=== PATIENT | female | born 1965 | race Caucasian/White ===

== ENCOUNTER 2018-03-29 17:54 | Emergency (ER) | payer MEDICAID ==
[2018-03-29] MEDS ORDERED: IOPAMIDOL-300 100 ML VIAL IVP ONE ×2 (17:55→19:38)
[2018-03-29] MEDS ORDERED: HYDROmorphone 2 MG/ML VIAL IVP STA (18:11)
[2018-03-29] MEDS ORDERED: ONDANSETRON 4 MG/2 ML VIAL IVP STA (18:11)
[2018-03-29] MEDS ORDERED: DEXAMETHASONE 10 MG/ML VIAL IVP STA (18:11)
[2018-03-29] MEDS ORDERED: SODIUM CHLORIDE 0.9% 1,000 ML IV ONE (18:11)
[2018-03-29] MEDS ORDERED: AMPICILLIN/SULBACTAM 3 GM in SODIUM CHLORIDE 0.9% MINIBAG 100 ML IV STA (18:11)
--- NOTE | 2018-03-29 18:14 | ED Physician Documentation ---
PD HPI HEENT - Stated complaint Stated Complaint: LF SIDE FACIAL/JAW SWELLING/PX - Chief complaint Chief Complaint: Heent - History obtained from History obtained from: Patient, Family - History of Present Illness Timing - onset: Other (She had a sore throat about a week ago, it went away, but over the last few days has developed progressive left-sided pain from the ear down to the jaw with swelling of the left side of the neck and fevers. She has been vomiting as well.) Review of Systems Ten Systems: 10 systems reviewed and negative Constitutional: reports: Fever, Chills, Fatigue Throat: reports: Dental pain / toothache, Sore throat Cardiac: denies: Chest pain / pressure, Palpitations Respiratory: denies: Dyspnea, Cough PD PAST MEDICAL HISTORY - Present Medications Home Medications: Ambulatory Orders Medication Instructions Recorded Confirmed Atorvastatin Calcium 03/29/18 Lisinopril/Hydrochlorothiazide 03/29/18 [Lisinopril-Hctz 20-25 mg Tab] Naproxen [Naprosyn] 500 mg PO 03/29/18 03/29/18 Omeprazole 40 mg PO 03/29/18 Trazodone HCl 100 mg PO 03/29/18 - Allergies Allergies/Adverse Reactions: Allergies Allergy/AdvReac Type Severity Reaction Status Date / Time aspirin AdvReac Nausea Verified 03/29/18 18:01 PD ED PE NORMAL - Vitals Vital signs reviewed: Yes - General General: Alert and oriented X 3, No acute distress, Other (She is tachycardic and hypertensive) - HEENT HEENT: Other (She has trismus, she has tenderness of the floor of the mouth and obvious brawny edema of the anterior left neck. TMs are normal. I am unable to visualize the posterior oropharynx.) - Neck Neck: Supple, no meningeal sign, No bony TTP - Cardiac Cardiac: RRR, No murmur - Respiratory Respiratory: No respiratory distress, Clear bilaterally - Abdomen Abdomen: Normal bowel sounds, Soft, Non tender - Back Back: No CVA TTP, No spinal TTP - Derm Derm: Normal color, Warm and dry - Extremities Extremities: No edema, No calf tenderness / cord - Neuro Neuro: Alert and oriented X 3, Normal speech Results - Vitals Vitals: Vital Signs - 24 hr 03/29/18 03/29/18 03/29/18 17:56 18:35 19:01 Temperature 37.3 C Heart Rate 136 H 111 H 111 H Respiratory 24 16 16 Rate Blood Pressure 157/95 H 136/78 H 127/72 O2 Saturation 98 96 94 03/29/18 03/29/18 20:09 20:48 Temperature Heart Rate 127 H 119 H Respiratory 22 20 Rate Blood Pressure 134/79 H 124/79 O2 Saturation 93 97 Oxygen O2 Source Room air - Labs Labs: Laboratory Tests 03/29/18 03/29/18 03/29/18 18:20 18:20 18:20 WBC 14.0 H RBC 4.23 Hgb 13.1 Hct 38.3 MCV 90.6 MCH 30.9 MCHC 34.1 RDW 13.8 Plt Count 276 MPV 7.9 Neut # (Auto) 12.8 H Lymph # (Auto) 0.[address] [place] # (Auto) 0.7 Eos # (Auto) 0.0 Baso # (Auto) 0.0 Absolute Nucleated RBC 0.02 Nucleated RBC % 0.1 PT 15.2 H INR 1.4 H Sodium 134 L Potassium 3.0 L Chloride 101 Carbon Dioxide 21 Anion Gap 12.0 BUN 16 Creatinine 0.7 Estimated GFR (MDRD) 87 L Glucose 133 H Lactic Acid Calcium 8.6 Total Bilirubin 0.9 AST 26 ALT 23 Alkaline Phosphatase 66 Total Protein 7.2 Albumin 3.4 Globulin 3.8 Albumin/Globulin Ratio 0.9 L Lipase 18 L 03/29/18 18:20 WBC RBC Hgb Hct MCV MCH MCHC RDW Plt Count MPV Neut # (Auto) Lymph # (Auto) [place] # (Auto) Eos # (Auto) Baso # (Auto) Absolute Nucleated RBC Nucleated RBC % PT INR Sodium Potassium Chloride Carbon Dioxide Anion Gap BUN Creatinine Estimated GFR (MDRD) Glucose Lactic Acid 2.0 Calcium Total Bilirubin AST ALT Alkaline Phosphatase Total Protein Albumin Globulin Albumin/Globulin Ratio Lipase - Rads (name of study) CT Soft tissue neck Radiology: EMP read contemporaneously (1. Extensive soft tissue swelling and inflammatory change along the inferior left face, centered at the level of the left body of the mandible (for example series 3 image 55). This likely represents soft tissue cellulitis. 2. The adjacent left first mandibular molar ( series 6 image 45) demonstrates periapical lucencies, which may represent periapical abscess. This suggests possible odontogenic etiology for the patient' s infection. 3. None organized fluid and foci of gas are present within left pig casting machine operator space adjacent to the left angle of mandible, extending to the left sublingual space. This is concerning for infection by gas-forming organism and possible necrotizing fasciitis. 4. There is a small organized fluid collection with a focus of gas lateral to the left mandibular body measuring approximately 1.6 x 0.7 x 1.4 cm (series 3 image 51, series 5 image 17), likely representing a soft tissue abscess. No other definite organized fluid collection. 5. The left submandibular gland is enlarged and hyperenhancing, likely secondarily infected.) PD MEDICAL DECISION MAKING - ED course ED course: 52-year-old woman with an exam that looks like Silvino's angina. She was administered Unasyn and sent to CT. The CT was immediately reviewed by me and concerning for NSTI. Added clinda and vancomycin. [place] [facility] [place] at 2004 and cobras completed. There is a high risk of decompensation and may need to be in the operating room in an expedited fashion so airlift was mobilized. This case far exceeds the capabilities of this [facility]. - Critical Care Time(min): 42 Time Includes: Direct patient care, Review records, Reassess patient, Document care, Coordinate care, Medical consult, Family consult for tx dec Data interpretation: Labs, Pulse ox Procedures included in critical care time: Peripheral IV - Sepsis Event Vital Signs: Vital Signs - 24 hr 03/29/18 03/29/18 03/29/18 17:56 18:35 19:01 Temperature 37.3 C Heart Rate 136 H 111 H 111 H Respiratory 24 16 16 Rate Blood Pressure 157/95 H 136/78 H 127/72 O2 Saturation 98 96 94 03/29/18 03/29/18 20:09 20:48 Temperature Heart Rate 127 H 119 H Respiratory 22 20 Rate Blood Pressure 134/79 H 124/79 O2 Saturation 93 97 Oxygen O2 Source Room air Departure - Departure Disposition: 02 Transfer Acute Care Hosp Clinical Impression: Necrotizing fasciitis Condition: Critical
[2018-03-29 18:37] LABS: BASOPHILS % (AUTO) 0.2 %; EOSINOPHILS % (AUTO) 0.1 %; HGB - HEMOGLOBIN 13.1 g/dL (12.0-16.0); LYMPHOCYTES # (AUTO) 0.4 10^3/uL (1.5-3.5); LYMPHOCYTES % (AUTO) 2.9 %; MEAN CORPUSCULAR HEMOGLOBIN 30.9 pg (27.0-31.0); MEAN CORPUSCULAR HGB CONC 34.1 g/dL (32.0-36.0); MEAN CORPUSCULAR VOLUME 90.6 fL (81.0-99.0); MEAN PLATELET VOLUME 7.9 fL (7.9-10.8); MONOCYTES # (AUTO) 0.7 10^3/uL (0.0-1.0); MONOCYTES % (AUTO) 5.1 %; NEUTROPHILS # (AUTO) 12.8 10^3/uL (1.5-6.6); NEUTROPHILS % (AUTO) 91.7 %; PLT - PLATELET COUNT 276 10^3/uL (130-450); RED BLOOD COUNT 4.23 10^6/uL (4.20-5.40); RED CELL DISTRIBUTION WIDTH 13.8 % (12.0-15.0)
[2018-03-29] MEDS ORDERED: IOPAMIDOL-300 100 ML VIAL ONE (18:38)
[2018-03-29 18:44] LABS: INR 1.4 (0.8-1.2); PT - PROTHROMBIN TIME 15.2 secs (9.9-12.6)
[2018-03-29 18:49] LABS: ALBUMIN 3.4 g/dL (3.2-5.5); ALBUMIN/GLOBULIN RATIO 0.9 (1.0-2.2); BILIRUBIN,TOTAL 0.9 mg/dL (0.2-1.0); CALCIUM 8.6 mg/dL (8.5-10.3); CREATININE 0.7 mg/dL (0.4-1.0); TOTAL PROTEIN 7.2 g/dL (6.7-8.2)
[2018-03-29] MEDS ORDERED: POTASSIUM CHLOR 10 MEQ/100 ML 10 MEQ/100 ML BAG IV ONE (18:57)
[2018-03-29] MEDS ORDERED: CLINDAMYCIN 900 MG/50 ML 50 ML IV ONE (19:23)
[2018-03-29] MEDS ORDERED: VANCOMYCIN INJ 2 GM in SODIUM CHLORIDE 0.9% 500 ML IV STA (19:23)
--- NOTE | 2018-03-29 19:56 | CT Report ---
Procedure Date: 03/29/2018 Accession Number: [id number] / [id number] Procedure: CT - Neck Soft Tissue W/ CPT Code: FULL RESULT: EXAM: CT SOFT TISSUE NECK WITH CONTRAST. EXAM DATE: 03/29/2018 07:02 PM. HISTORY: 52-year-old female, neck pain and sore throat, suspect Silvino's angina COMPARISONS: None. TECHNIQUE: Routine soft tissue neck CT protocol. Reconstructions: Coronal and sagittal. IV contrast: ISOVUE 300 80mL. In accordance with CT protocol optimization, one or more of the following dose reduction techniques were utilized for this exam: automated exposure control, adjustment of mA and/or KV based on patient size, or use of iterative reconstructive technique. FINDINGS: Visualized Intracranial Contents: Unremarkable. Orbits: Symmetric and unremarkable. Sinuses: Visualized paranasal sinuses and mastoid air cells are clear. Oral cavity: The visualized oral cavity is unremarkable. The floor of the mouth is symmetric. Pharynx : Pharyngeal mucosa is unremarkable. The infratemporal fossa, parapharyngeal spaces, and retropharyngeal space are unremarkable. The base of the tongue is symmetric and unremarkable. The airway is patent. Larynx: Larynx and supraglottic airway are patent without mass lesion. Vocal cords are symmetric. The visualized trachea is unremarkable. Parotid and Submandibular Glands: The left submandibular gland is enlarged and hyperenhancing, likely secondarily infected. The parotid glands bilaterally and the right submandibular gland are unremarkable. Lymph Nodes: No enlarged lymph nodes are identified in the cervical, supraclavicular, and visualized superior mediastinal regions. Soft tissues: Extensive soft tissue swelling and inflammatory change along the inferior left face, centered at the level of the left body of the mandible (for example series 3 image 55). This likely represents soft tissue cellulitis. The adjacent left first mandibular molar (series 6 image 45) demonstrates periapical lucencies, which may represent periapical abscess. This suggests possible odontogenic etiology for the patient's infection. Fluid and foci of gas are present within left administrative services manager space adjacent to the left angle of mandible, extending to the left sublingual space. This is concerning for infection by gas-forming organism and necrotizing fasciitis. There is a small organized fluid collection with a focus of gas lateral to the left mandibular body measuring approximately 1.6 x 0.7 x 1.4 cm (series 3 image 51, series 5 image 17), likely representing a soft tissue abscess. No other definite organized fluid collection. Vascular Structures: Unremarkable. Thyroid Gland: Normal. Lung: The visualized lung apices are clear. Bones: No evidence of acute fracture or malalignment. There are mild degenerative changes. Other: None. IMPRESSION: 1. Extensive soft tissue swelling and inflammatory change along the inferior left face, centered at the level of the left body of the mandible (for example series 3 image 55). This likely represents soft tissue cellulitis. 2. The adjacent left first mandibular molar (series 6 image 45) demonstrates periapical lucencies, which may represent periapical abscess. This suggests possible odontogenic etiology for the patient's infection. 3. None organized fluid and foci of gas are present within left administrative services manager space adjacent to the left angle of mandible, extending to the left sublingual space. This is concerning for infection by gas-forming organism and possible necrotizing fasciitis. 4. There is a small organized fluid collection with a focus of gas lateral to the left mandibular body measuring approximately 1.6 x 0.7 x 1.4 cm (series 3 image 51, series 5 image 17), likely representing a soft tissue abscess. No other definite organized fluid collection. 5. The left submandibular gland is enlarged and hyperenhancing, likely secondarily infected. CRITICAL RESULT: The findings were discussed with Dr. Blanchard On 03/29/2018 19:51 [facility]IA
[2018-03-29 20:49] VITALS: BP 124/79
== END 2018-03-29 20:55 | disposition short-term general hospital (02) ==
LOC: ED 17:54
DX: M72.6 Necrotizing fasciitis (principal)
CPT/HCPCS: 36415; 70491; 80053; 83605; 83690; 85025; 85610; 87040; 96365; 96368; 96375; 99284; 99291; J1170; J3370; Q9967; 81599